=== PATIENT | female | born 1955 | race Caucasian/White ===

== ENCOUNTER 2017-09-07 23:28 | Emergency (ER) | payer OTHER ==
--- NOTE | 2017-09-07 23:50 | ED DYSPNEA/ASTHMA COMPLAINT ---
History of Present Illness General Chief Complaint: Wheezing/Asthma Stated Complaint: PT C/O COUGH, WHEEZING Source: patient Exam Limitations: no limitations Vital Signs & Intake/Output Vital Signs & Intake/Output Vital Signs Date Time Temp Pulse Resp B/P B/P Pulse O2 O2 Flow FiO2 Mean Ox Delivery Rate 09/08 0103 97.2 88 18 140/86 97 Room Air 09/08 0010 95 09/08 0005 97 Room Air 09/07 2354 97.4 94 18 149/85 96 Room Air Allergies Coded Allergies: No Known Allergies (09/07/17) Reconcile Medications Albuterol Sulfate (Ventolin Hfa) 90 MCG HFA.AER.AD 2 PUF INH Q4-6 PRN PRN wheezing Prednisone 50 MG TABLET 1 TAB PO DAILY bronchospasm Triage Nurses Notes Reviewed? yes Onset: Gradual Duration: day(s): Timing: recent history Severity: moderate Activities at Onset: none Prior Episodes/Possible Cause: no prior episodes Modifying Factors: Improves With: rest. Associated Symptoms: cough, wheezing HPI: 62 yo woman in prior good health presents with wheezing x 1 day. She notes it started yesterday at work. She has no fever, chills, phlegm, chest pain, lower extremity edema. She is otherwise well. Past History Travel History Traveled to [place] past 21 day No Medical History Any Pertinent Medical History? see below for history Cardiovascular: hyperlipidemia Surgical History Surgical History: none Psychosocial History What is your primary language [place] Family History Hx Contributory? No Review of Systems Review of Systems Constitutional: Reports: no symptoms. EENTM: Reports: no symptoms. Respiratory: Reports: no symptoms. Cardiovascular: Reports: no symptoms. GI: Reports: no symptoms. Genitourinary: Reports: no symptoms. Musculoskeletal: Reports: no symptoms. Skin: Reports: no symptoms. Neurological/Psychological: Reports: no symptoms. Hematologic/Endocrine: Reports: no symptoms. Immunologic/Allergic: Reports: no symptoms. All Other Systems: Reviewed and Negative Physical Exam Physical Exam General Appearance: well developed/nourished, mild distress Head: atraumatic, normal appearance Eyes: Bilateral: normal appearance. Ears, Nose, Throat: normal pharynx, normal ENT inspection Neck: normal inspection, supple, full range of motion Respiratory: wheezing Cardiovascular: regular rate/rhythm Gastrointestinal: normal bowel sounds, soft, non-tender, no organomegaly Extremities: normal inspection, normal capillary refill, normal range of motion, no edema Neurologic/Psych: no motor/sensory deficits, awake, alert, oriented x 3 Skin: intact, normal color, warm/dry Core Measures ACS in differential dx? No CVA/TIA Diagnosis No Sepsis Present: No Sepsis Focused Exam Completed? No Progress Differential Diagnosis: asthma, bronchitis, CHF, COPD, pneumonia Plan of Care: Orders Procedure Date/time Status TROPONIN LEVEL 09/07 2354 Complete HEPATIC FUNCTION PANEL 09/07 2354 Complete D-DIMER 09/07 2354 Complete CBC WITHOUT DIFFERENTIAL 09/07 2354 Complete BASIC METABOLIC PANEL 09/07 2354 Complete EKG 09/07 2354 Active Laboratory Tests 09/08/17 0010: Anion Gap 13, Estimated GFR > 60, BUN/Creatinine Ratio 21.3, Glucose 142 H, Calcium 10.1, Total Bilirubin 1.0, Direct Bilirubin 0.3, AST 20, ALT 22, Alkaline Phosphatase 63, Troponin I < 0.01, Total Protein 7.7, Albumin 4.6, D- Dimer High Sensitivty < 200, CBC w Diff NO MAN DIFF REQ, RBC 4.86, MCV 87.4, MCH 29.6, MCHC 33.8, RDW 12.7, MPV 7.6, Gran % 63.0, Lymphocytes % 21.4, Monocytes % 8.2, Eosinophils % 6.8 H, Basophils % 0.6, Absolute Granulocytes 4.6, Absolute Lymphocytes 1.6, Absolute Monocytes 0.6, Absolute Eosinophils 0.5, Absolute Basophils 0 Diagnostic Imaging: Viewed by Me: Radiology Read. Discussed w/RAD: Radiology Read. CXR Impression: no acute abnormality, no infiltrates, normal size heart, normal mediastinum Initial ED EKG: nsr with artifact. Departure Departure Disposition: HOME OR SELF CARE Condition: Stable Clinical Impression Primary Impression: Bronchospasm Referrals: Stephanie Rodriguez MD (PCP/Family) Departure Forms: Customer Survey General Discharge Information Prescriptions: Current Visit Scripts Prednisone 1 TAB PO DAILY #5 TAB Albuterol Sulfate (Ventolin Hfa) 2 PUF INH Q4-6 PRN PRN wheezing #1 INHAL Ref 1 Comments pt feeling better after supportive medication... no phlegm. no fever.... i doubt bacterial process given her lack of fever/sputum and benign blood work.. gave her steorids/inhaler. Critical Care Note Critical Care Note Critical Care Time: non-applicable
[2017-09-08 00:27] LABS: ABSOLUTE BASOPHIL COUNT 0 /CUMM (0.0-0.2); ABSOLUTE EOSINOPHIL COUNT 0.5 /CUMM (0.0-0.7); ABSOLUTE GRANULOCYTE CT 4.6 /CUMM (1.4-6.5); ABSOLUTE LYMPH COUNT 1.6 /CUMM (1.2-3.4); ABSOLUTE MONOCYTE COUNT 0.6 /CUMM (0.10-0.60); BASOPHIL % 0.6 % (0.0-2.0); EOSINOPHIL % 6.8 % (0-5); HEMATOCRIT 42.5 % (37-47); MEAN CORPUSCULAR HGB 29.6 PG (27.0-31.0); MEAN CORPUSCULAR HGB CONC 33.8 G/DL (33.0-37.0); MEAN CORPUSCULAR VOLUME 87.4 FL (81.0-99.0); MEAN PLATELET VOLUME 7.6 FL (7.4-10.4); PLATELET COUNT 249 /CUMM (130-400); RBC DISTRIBUTION WIDTH 12.7 % (11.5-14.5); RED BLOOD CELL CT 4.86 /CUMM (4.20-5.40); WHITE BLOOD CELL COUNT 7.3 /CUMM (4.8-10.8)
[2017-09-08] MEDS ORDERED: PREDNISONE50 M1 PO (00:30)
[2017-09-08] MEDS ORDERED: VENTOLIN HFA18 GM INH (00:30)
--- NOTE | 2017-09-08 00:45 | RADIOLOGY REPORT ---
EXAMINATION: CHEST 1 VIEW CLINICAL INFORMATION: Dyspnea. COMPARISON: None. TECHNIQUE: An AP view of the chest is provided. FINDINGS: The cardiac silhouette is not enlarged. The mediastinal and hilar contours are unremarkable. There are neither pleural effusions nor pneumothoraces. There are no consolidations. The osseous structures are unremarkable. IMPRESSION: No evidence for acute disease.
[2017-09-08 01:03] VITALS: BP 140/86
== END 2017-09-08 01:13 ==
LOC: ERH 23:28
PROVIDERS: Pediatrics
DX: J98.01 Acute bronchospasm (principal)
CPT/HCPCS: 1263; 1395; 71045; 93005; 93010